=== PATIENT | male | born 1965 | race Two or more races ===

== ENCOUNTER 2024-06-26 18:32 | Emergency (ER) | payer OTHER ==
[~2024-06-26] VITALS: Ht 175.3 cm; Wt 94.1 kg
[2024-06-26] MEDS ORDERED: PRED20TA2 PO (22:32)
[2024-06-26] MEDS ORDERED: ALBUAER3 IN (22:32)
[2024-06-26] MEDS ORDERED: AMOX875T4 PO (22:32)
[2024-06-26 23:35] LABS: Rapid Influenza A Negative (Negative); Rapid Influenza B Negative (Negative)
[2024-06-26 23:36] LABS: COVID19 ANTIGEN SOFIA FIA NEGATIVE (NEGATIVE)
[2024-06-26 23:48] VITALS: BP 118/92; PULSE 85; RESP 17; TEMP 97.4; O2SAT 98
== END 2024-06-26 23:53 | disposition home or self-care (01) ==
LOC: ER 18:32
DX: J20.9 Acute bronchitis, unspecified (principal); I10 Essential (primary) hypertension; Z20.822 Contact with and (suspected) exposure to COVID-19
CPT/HCPCS: 36415; 71045; 87426; 87804